=== PATIENT | male | born 1995 | race Hispanic/Latino ===

== ENCOUNTER 2018-10-19 22:09 | Emergency (ER) | payer OTHER ==
[~2018-10-19] VITALS: Ht 162.6 cm; Wt 81.6 kg
[2018-10-19] MEDS ORDERED: IBUPROFEN 600 MG TAB PO STA (23:15)
[2018-10-19 23:51] LABS: INFLUENZAE A&B ANTIGEN (RAPID) NEGATIVE (NEGATIVE); STREPTOCOCCUS GRP A ANTIGEN NEGATIVE (NEGATIVE)
--- NOTE | 2018-10-20 00:42 | Diagnostic Imaging Report ---
EXAMINATION: CHEST 2 VIEWS INDICATION: ^fever, rule out pneumonia ^[id number] ^[id number] COMPARISON: None FINDINGS: PA and lateral views TUBES and LINES: None. LUNGS: Lungs are well inflated. Central peribronchial cuffing. PLEURA: No pleural effusion or pneumothorax. HEART AND MEDIASTINUM: The cardiomediastinal silhouette is unremarkable. BONES AND SOFT TISSUES: No acute osseous lesion. Soft tissues are unremarkable. UPPER ABDOMEN: No free air under the diaphragm. IMPRESSION: Central peribronchial cuffing. Underlying/developing pneumonia in the perihilar regions cannot be excluded. Signed by: Dr. Caesar Tobin MD on 10/20/2018 12:39 AM
[2018-10-20] MEDS ORDERED: CEFDINIR300 MG PO (01:02)
[2018-10-20] MEDS ORDERED: AZITHROMYCIN250 MG PO (01:02)
[2018-10-20] MEDS ORDERED: TAMIFLU75 MG PO (01:02)
[2018-10-20 01:24] VITALS: BP 121/78
== END 2018-10-20 01:40 | disposition home or self-care (01) ==
LOC: EDBD 22:09 → ER 22:09
DX: R50.9 Fever, unspecified (principal); R05 Cough; M79.10 Myalgia, unspecified site; J15.9 Unspecified bacterial pneumonia; J06.9 Acute upper respiratory infection, unspecified
CPT/HCPCS: 71046; 83518; 87070; 87400; 99284